=== PATIENT | male | born 1980 | race Caucasian/White ===

== ENCOUNTER 2017-02-17 00:56 | Emergency (ER) | payer SELFPAY ==
[~2017-02-17] VITALS: Ht 172.7 cm; Wt 113.4 kg
--- NOTE | 2017-02-17 01:08 | NUR ---
CALLED FOR TRIAGE; NOT IN LOBBY.
--- NOTE | 2017-02-17 01:13 | NUR ---
CALLED AGAIN; NO ANSWER.
[2017-02-17 01:29] VITALS: BP 147/99
== END 2017-02-17 02:59 | disposition home or self-care (01) ==
LOC: ER 00:56
DX: M79.602 Pain in left arm (principal)
CPT/HCPCS: 93971; 99284; A4606; Z7610

== ENCOUNTER 2018-03-16 21:32 | Emergency (ER) | payer SELFPAY ==
[~2018-03-16] VITALS: Ht 172.7 cm; Wt 122.5 kg
[2018-03-16 21:51] VITALS: BP 124/72
[2018-03-16] MEDS ORDERED: IBUPROFEN 400 MG TABLET ONE (23:52)
--- NOTE | 2018-03-16 23:55 | NUR ---
EMT BEDSIDE FOR WOUND CARE
[2018-03-17] MEDS ORDERED: IBUPROFEN 400 MG TABLET PO ONE
[2018-03-17] MEDS ORDERED: LIDOCAINE 1%-EPI 1:100,000 20 ML VIAL ONE (00:04)
== END 2018-03-17 00:33 | disposition home or self-care (01) ==
LOC: ER 21:37
DX: S01.81XA Laceration without foreign body of other part of head, initial encounter (principal); M79.1 Myalgia; Z88.0 Allergy status to penicillin; V29.9XXA Motorcycle rider (driver) (passenger) injured in unspecified traffic accident, initial encounter; Y93.55 Activity, bike riding; Y92.89 Other specified places as the place of occurrence of the external cause; Y99.8 Other external cause status
CPT/HCPCS: 93971-TC; A4606; A6402; J3490; Z7610

== ENCOUNTER 2019-04-03 10:48 | Emergency (ER) | payer MEDICAID ==
[~2019-04-03] VITALS: Ht 172.7 cm; Wt 135.2 kg
--- NOTE | 2019-04-03 11:00 | NUR ---
BRANNON CALLED TO TRIAGE, PATIENT IN RESTROOM
--- NOTE | 2019-04-03 11:09 | NUR ---
PT BBISELF FROM HOME FOR R FLANK PAIN SINCE YDAY; PT AAOX4, -SOB, NAD NOTED, VSS, PENDING MD LAST
[2019-04-03] MEDS ORDERED: ONDANSETRON HCL/PF 4 MG/2 ML VIAL ONE (11:25)
[2019-04-03] MEDS ORDERED: MORPHINE SULFATE INJ 4 MG/ML DISP.SYRIN ONE (11:25)
[2019-04-03] MEDS ORDERED: ONDANSETRON HCL/PF 4 MG/2 ML VIAL IVP ONE (11:30)
[2019-04-03] MEDS ORDERED: MORPHINE SULFATE INJ 2 MG/ML DISP.SYRIN IV ONE (11:30)
[2019-04-03] MEDS ORDERED: IV NS 0.9% 1,000 ML BAG IV ONE (11:30)
[2019-04-03 11:31] LABS: BASOPHILS % (AUTO) 0.3 % (0.0-2.0); EOSINOPHILS % (AUTO) 2.2 % (0.0-6.0); HEMATOCRIT 41 % (39-51); LYMPHOCYTES # (AUTO) 1.9 /CMM (0.8-4.8); LYMPHOCYTES % (AUTO) 24.1 % (20.0-44.0); MEAN CORPUSCULAR HGB CONC 34 g/dl (31.0-36.0); MEAN CORPUSCULAR VOLUME 85 fL (80-96); MONOCYTES # (AUTO) 0.5 /CMM (0.1-1.30); NEUTROPHILS # (AUTO) 5.4 /CMM (1.8-8.9); NEUTROPHILS % (AUTO) 67.4 % (43.0-81.0); PLATELET COUNT (AUTO) 254 /CMM (150-450); RED BLOOD CELL COUNT(AUTO) 4.86 MIL/uL (4.5-6.0); WHITE BLOOD COUNT (AUTO) 8.1 K/uL (4.3-11.0)
[2019-04-03 11:38] LABS: CALCIUM, SERUM 8.8 mg/dL (8.5-10.1); POTASSIUM 3.9 mmol/L (3.5-5.1)
[2019-04-03 11:44] LABS: ALBUMIN 3.4 g/dL (3.4-5.0); BILIRUBIN,DIRECT 0.1 mg/dL (0.0-0.2); BILIRUBIN,TOTAL 0.6 mg/dL (0.2-1.0); TOTAL PROTEIN, SERUM 7.8 g/dL (6.4-8.2)
[2019-04-03 12:15] LABS: APPEARANCE,URINE Clear (CLEAR); BILIRUBIN,URINE Negative (NEGATIVE); BLOOD, URINE Negative Ery/uL (NEGATIVE); COLOR,URINE Yellow (YELLOW); KETONES,URINE Negative (NEGATIVE); LEUKOCYTE ESTERASE ,URINE Negative (NEGATIVE); NITRITE, URINE Negative (NEGATIVE); PH,URINE 5.5 (5.0-8.0); PROTEIN,URINE Negative (NEGATIVE); UGLUCOSE Negative (NEGATIVE); UROBILINOGEN,URINE 0.2 EU/dL (0.2)
--- NOTE | 2019-04-03 12:28 | NUR ---
Patient discharged to home in stable condition. Written and verbal after care instructions given. Patient verbalizes understanding of instruction. IV removed. Catheter intact and site benign. Pressure and 4x4 applied to site. No bleeding noted.
[2019-04-03 12:30] VITALS: BP 121/84
== END 2019-04-03 12:32 | disposition home or self-care (01) ==
LOC: ER 10:48
DX: R10.11 Right upper quadrant pain (principal); F15.90 Other stimulant use, unspecified, uncomplicated; Z88.0 Allergy status to penicillin
CPT/HCPCS: 36415; 76705; 80048; 80076; 81001; 83690; 85025; 96374; 99284; J2405; J7030; 81000-TC; J2270

== ENCOUNTER 2019-11-09 12:21 | Inpatient (IN) | payer MEDICAID, OTHER ==
[~2019-11-09] VITALS: Ht 172.7 cm; Wt 127.0 kg
--- NOTE | 2019-11-09 12:30 | NUR ---
CHEST PAIN X 4 DAYS ; ACHING-LIKE, 8/10, RADIATES TO THE NECK AND BACK C/O OF HEADACHE. PATIENT A/OX4, BREATHING EVEN AND UNLABORED, NO SOB NOTED, KEPT COMFORTABLE. CHANGED INTO GOWN, ATTACHED TO THE FUR VAULT ATTENDANT.
[2019-11-09 13:21] LABS: BASOPHILS % (AUTO) 0.3 % (0.0-2.0); EOSINOPHILS % (AUTO) 0.9 % (0.0-6.0); HEMATOCRIT 35 % (39-51); HEMOGLOBIN 11.4 g/dL (13.5-17.5); LYMPHOCYTES # (AUTO) 1.6 /CMM (0.8-4.8); LYMPHOCYTES % (AUTO) 17.7 % (20.0-44.0); MEAN CORPUSCULAR HGB CONC 33 g/dl (31.0-36.0); MEAN CORPUSCULAR VOLUME 84 fL (80-96); MONOCYTES # (AUTO) 0.6 /CMM (0.1-1.30); MONOCYTES % (AUTO) 7.1 % (2.0-12.0); NEUTROPHILS # (AUTO) 6.7 /CMM (1.8-8.9); PLATELET COUNT (AUTO) 345 /CMM (150-450); RED BLOOD CELL COUNT(AUTO) 4.16 MIL/uL (4.5-6.0)
[2019-11-09 13:31] LABS: CALCIUM, SERUM 9.8 mg/dL (8.5-10.1); CREATININE 1.1 mg/dL (0.6-1.3)
--- NOTE | 2019-11-09 13:44 | NUR ---
ramu haynes [phone]
[2019-11-09] MEDS ORDERED: ASPIRIN 325 MG TABLET ONE (13:58)
[2019-11-09] MEDS ORDERED: ASPIRIN 325 MG TABLET PO ONE (14:00)
--- NOTE | 2019-11-09 14:07 | NUR ---
CALLED FOR TELE BED
--- NOTE | 2019-11-09 14:08 | NUR ---
DR. GARCIA AT BEDSIDE.
[2019-11-09] MEDS ORDERED: FUROSEMIDE 40 MG/4 ML VIAL IV ONE (14:30)
[2019-11-09] MEDS ORDERED: FUROSEMIDE 40 MG/4 ML VIAL ONE (14:38)
[2019-11-09] MEDS ORDERED: ACETAMINOPHEN 325 MG TABLET PO PRN (15:30)
[2019-11-09] MEDS ORDERED: MORPHINE SULFATE INJ 2 MG/ML DISP.SYRIN IV PRN (15:30)
[2019-11-09] MEDS ORDERED: ZOLPIDEM TARTRATE 5 MG TABLET PO PRN (15:30)
[2019-11-09] MEDS ORDERED: MAG HYDROX/AL HYDROX/SIMETH 30 ML UDC PO PRN (15:30)
[2019-11-09] MEDS ORDERED: MAGNESIUM HYDROXIDE 30 ML UDC PO PRN (15:30)
[2019-11-09] MEDS ORDERED: ONDANSETRON HCL/PF 4 MG/2 ML VIAL IVP PRN (15:30)
--- NOTE | 2019-11-09 15:48 | NUR ---
GOT BED 315-2
--- NOTE | 2019-11-09 16:21 | NUR ---
Report given to Vida ROSS. Patient a/ox4, ambulatory with steady gait, c/o mild chest pain at this time. Vitals stable. Needs attended.
[2019-11-09 16:24] LABS: APPEARANCE,URINE Clear (CLEAR); BILIRUBIN,URINE Negative (NEGATIVE); BLOOD, URINE Negative Ery/uL (NEGATIVE); COLOR,URINE Yellow (YELLOW); KETONES,URINE Negative (NEGATIVE); LEUKOCYTE ESTERASE ,URINE Negative (NEGATIVE); NITRITE, URINE Negative (NEGATIVE); PH,URINE 7.5 (5.0-8.0); PROTEIN,URINE Negative (NEGATIVE); UGLUCOSE Negative (NEGATIVE)
--- NOTE | 2019-11-09 16:37 | NUR ---
patient transferred to room 315-1 via acls protocol. Patient a/ox4, breathing even and unlabored, no sob noted. Needs attended, endorsed to mehdi rn.
[2019-11-09 16:45] LABS: BACTERIA,URINE Rare /HPF (None Seen); RBC,URINE NONE SEEN /HPF (0-2); SQUAMOUS EPITHELIAL CELL,UR Few /HPF (None Seen); WBC,URINE NONE SEEN /HPF (0-3)
--- NOTE | 2019-11-09 17:00 | NUR ---
ms rn received a new admission from er, 39 year old male, came in w/ dx of chest pain, awake alert,oriented x4,not in any form of distress ,respirations even and unlabored,no sob noted, will monitor patient.
--- NOTE | 2019-11-09 18:00 | NUR ---
ms rn no distress eating dinner at this time,all needs attended.
--- NOTE | 2019-11-09 19:00 | NUR ---
RECIEVED IN BED ALERT AND ORIENTATED x4. C/O PAIN NECK UP TP TOP OF HEAD WHICH HE SAYS HAS BEEN THERE FOR DAYS, THE MD HE TOLD TODAY WHEN HE WAS BEING ADMITTED. EXPLAINED THE CALL LIGT TO THE PT BEDALARM ON
[2019-11-09 20:00] VITALS: BP 112/67
[2019-11-09] MEDS: HYDROCODONE/APAP 5/325MG 1 EACH TABLET PO PRN (20:59)
--- NOTE | 2019-11-09 21:00 | NUR ---
ASKED IF I CAN GIVE OUT INFORMATION REGARDING CONDITION AND TESTS TO HIS FATHER REGARING HIS CONDITION AND WHAT IS HAPPENING. hE AGREED THAT NURSING COULD GIVE OUT INFO TO HIS FATHER.
[2019-11-10] VITALS: BP 125/60
[2019-11-10 04:00] VITALS: BP 132/50
--- NOTE | 2019-11-10 06:11 | NUR ---
Slept thru the night. NSR thru the night. No c/o chestpain this 12 hours. He did c/o h/a at the beginning of the shift gave [place] tab 1 and this ws effective for pain relief. No SOB. Pleasent and coopersative
[2019-11-10 06:34] LABS: BASOPHILS % (AUTO) 0.2 % (0.0-2.0); EOSINOPHILS % (AUTO) 1.2 % (0.0-6.0); HEMATOCRIT 38 % (39-51); HEMOGLOBIN 12.4 g/dL (13.5-17.5); LYMPHOCYTES # (AUTO) 1.8 /CMM (0.8-4.8); LYMPHOCYTES % (AUTO) 18.4 % (20.0-44.0); MEAN CORPUSCULAR HGB CONC 33 g/dl (31.0-36.0); MEAN CORPUSCULAR VOLUME 84 fL (80-96); MONOCYTES # (AUTO) 0.8 /CMM (0.1-1.30); MONOCYTES % (AUTO) 8.2 % (2.0-12.0); NEUTROPHILS # (AUTO) 6.9 /CMM (1.8-8.9); PLATELET COUNT (AUTO) 351 /CMM (150-450); RED BLOOD CELL COUNT(AUTO) 4.54 MIL/uL (4.5-6.0); WHITE BLOOD COUNT (AUTO) 9.5 K/uL (4.3-11.0)
[2019-11-10 07:09] LABS: ALBUMIN 2.9 g/dL (3.4-5.0); BILIRUBIN,DIRECT 0.1 mg/dL (0.0-0.2); BILIRUBIN,TOTAL 0.6 mg/dL (0.2-1.0); CALCIUM, SERUM 9.5 mg/dL (8.5-10.1); PHOSPHORUS 4.2 mg/dL (2.5-4.9); POTASSIUM 3.8 mmol/L (3.5-5.1)
[2019-11-10 07:20] LABS: THYROID STIMULATING HORMONE 1.231 uIU/mL (0.358-3.74)
--- NOTE | 2019-11-10 07:30 | NUR ---
APPLIED COMPUTER SCIENCE PROFESSOR NOTES PATIENT RESTING IN BED, ALERT AND ORIENTED X4, NO RESPIRATORY DISTRESS, NO C/O PAIN AT THIS TIME. PATIENT ON PROJECT MANAGEMENT SR 91. PATIENT'S SKIN WARM TO TOUCH, IV ACCESS SITES INTACT AND PATENT. PATIENT'S NEEDS ATTENDED, BED ON LOWEST LOCKED POSITION, CALL LIGHT WITHIN REACH. WILL CONTINUE TO MONITOR.
[2019-11-10 08:00] VITALS: BP 118/75
[2019-11-10] MEDS ORDERED: ASPIRIN 81 MG TAB.CHEW PO SCH (09:00)
[2019-11-10] MEDS ORDERED: IBUPROFEN 800 MG TABLET PO PRN (09:00)
[2019-11-10] MEDS: HYDROCODONE/APAP 5/325MG 1 EACH TABLET PO PRN (09:36)
[2019-11-10] MEDS ORDERED: IBUPROFEN 400 MG TABLET PO PRN (11:00)
[2019-11-10] MEDS: IBUPROFEN 400 MG TABLET PO SCH ×2 (15:42→21:17)
[2019-11-10 16:00] VITALS: BP 110/68
--- NOTE | 2019-11-10 18:33 | NUR ---
FOREST ECOLOGY PROFESSOR NOTES PATIENT AWAKE IN BED, FAMILY AT BEDSIDE, NO RESPIRATORY DISTRESS, NO C/O PAIN AT THIS TIME. PATIENT'S SKIN WARM TO TOUCH, IV ACCESS SITE INTACT AND PATENT. PATIENT'S NEEDS ATTENDED, BED ON LOWEST LOCKED POSITION, CALL LIGHT WITHIN REACH. WILL ENDORSE TO ONCOMING NURSE.
--- NOTE | 2019-11-10 19:45 | NUR ---
PROTECTIVE SIGNAL SUPERINTENDENT OPENING NOTES PATIENT AWAKE IN BED. A/OX4. ON ROOM AIR. NO S/S OF SOB AND NO COMPLAINTS OF PAIN AT THIS TIME. TELE MONITOR READING SINUS RHYTHM, HEART RATE 94. IV PRESENT ON RIGHT FOREARM, SIZE 18 & LEFT FOREARM, SIZE 20; BOTH INTACT, PATENT, AND HEP LOCKED. BED LOCKED, SIDE RAILS X2, CALL LIGHT WITHIN REACH. WILL CONTINUE TO MONITOR.
[2019-11-10 20:00] VITALS: BP 106/65
[2019-11-11] VITALS: BP 107/53
[2019-11-11 04:00] VITALS: BP 115/68
[2019-11-11] MEDS: IBUPROFEN 400 MG TABLET PO SCH ×2 (04:58→12:15)
[2019-11-11 07:07] LABS: BASOPHILS % (AUTO) 0.2 % (0.0-2.0); EOSINOPHILS % (AUTO) 1.6 % (0.0-6.0); HEMATOCRIT 38 % (39-51); HEMOGLOBIN 12.5 g/dL (13.5-17.5); LYMPHOCYTES # (AUTO) 1.6 /CMM (0.8-4.8); LYMPHOCYTES % (AUTO) 15.7 % (20.0-44.0); MEAN CORPUSCULAR HGB CONC 33 g/dl (31.0-36.0); MEAN CORPUSCULAR VOLUME 83 fL (80-96); MONOCYTES # (AUTO) 0.8 /CMM (0.1-1.30); MONOCYTES % (AUTO) 7.8 % (2.0-12.0); NEUTROPHILS # (AUTO) 7.6 /CMM (1.8-8.9); NEUTROPHILS % (AUTO) 74.7 % (43.0-81.0); PLATELET COUNT (AUTO) 359 /CMM (150-450); RED BLOOD CELL COUNT(AUTO) 4.51 MIL/uL (4.5-6.0); WHITE BLOOD COUNT (AUTO) 10.2 K/uL (4.3-11.0)
[2019-11-11] MEDS: HYDROCODONE/APAP 5/325MG 1 EACH TABLET PO PRN (07:10)
--- NOTE | 2019-11-11 07:30 | NUR ---
PIPING ENGINEER CLOSING NOTES PATIENT AWAKE IN BED. A/OX4. ON ROOM AIR. NO S/S OF SOB AND NO COMPLAINTS OF PAIN AT THIS TIME. TELE MONITOR READING SINUS RHYTHM, HEART RATE 69. IV PRESENT ON RIGHT FOREARM, SIZE 18 & LEFT FOREARM, SIZE 20; BOTH INTACT, PATENT, AND HEP LOCKED. BED LOCKED, SIDE RAILS X2, CALL LIGHT WITHIN REACH. WILL ENDORSE TO DAY SHIFT TO FOLLOW PLAN OF CARE.
[2019-11-11 07:36] LABS: CALCIUM, SERUM 9.6 mg/dL (8.5-10.1); POTASSIUM 4.8 mmol/L (3.5-5.1)
--- NOTE | 2019-11-11 07:46 | NUR ---
RN OPENING NOTES Patient received on room air, no sob noted, a/o x4 and is denying pain at this time. He is asleep on his bed, easily awakened. R FA 18 and L FA 20 present, awaiting for CT angio at this time. Troponin elevated, per report, DEFLECTOR OPERATOR melva aware. Bed at the lowest setting, call light within reach, side rails up x2.
[2019-11-11 08:00] VITALS: BP 109/67
--- NOTE | 2019-11-11 12:50 | NUR ---
CARDIAC CTA IS ON HOLD DUE TO UNAVAILABILITY OF NURSE, PER NURSING MAJOR GIFTS DIRECTOR UNTIL FURTHER NOTICE.
--- NOTE | 2019-11-11 14:19 | NUR ---
rn notes patient left AMA at this time. explained to the patient the benefits of staying in the hospital. patient decided to still leave at this time. IV lines removed. AMA paper signed.
== END 2019-11-11 13:15 | disposition left against medical advice (07) | DRG 812 ==
LOC: ER 12:24 → TELE 15:19
PROVIDERS: ADMIT Nurse Practitioner Acute Care; ATTEND Nurse Practitioner Acute Care
DX: T43.621A Poisoning by amphetamines, accidental (unintentional), initial encounter (principal); I21.4 Non-ST elevation (NSTEMI) myocardial infarction; I50.21 Acute systolic (congestive) heart failure; E66.01 Morbid (severe) obesity due to excess calories; E44.0 Moderate protein-calorie malnutrition; I42.9 Cardiomyopathy, unspecified; I31.9 Disease of pericardium, unspecified; Z68.41 Body mass index [BMI] 40.0-44.9, adult; I11.0 Hypertensive heart disease with heart failure; D64.9 Anemia, unspecified; R73.03 Prediabetes; F19.19 Other psychoactive substance abuse with unspecified psychoactive substance-induced disorder; Y92.009 Unspecified place in unspecified non-institutional (private) residence as the place of occurrence of the external cause; F15.20 Other stimulant dependence, uncomplicated; F12.20 Cannabis dependence, uncomplicated
CPT/HCPCS: 36415; 71045-TC; 80048-TC; 80053-TC; 80061-TC; 80076-TC; 80305; 81000-TC; 83735-TC; 84100-TC; 84443-TC; 84484-TC; 85025-TC; 87081-TC; 93307-TC; G0378; J1940

== ENCOUNTER 2019-11-13 00:45 | Inpatient (IN) | payer OTHER ==
[~2019-11-13] VITALS: Ht 172.7 cm; Wt 127.0 kg
--- NOTE | 2019-11-13 00:45 | NUR ---
TO ER BED 8 AMBULATORY C/O L SIDED CHEST PAIN RADIATING TO NECK AND BACK X4-5 DAYS. WAS SEEN HERE ON 11/09 AND WAS ADMITTED FOR NSTEMI BUT SIGNED OUT AMA ON 11/11. 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 PT AAOX4 NO ACUTE DISTRESS NOTED, RESP EVEN AND UNLABORED. SKIN WARM, NONDIAPHORETIC. PLACE PT ON CARDIAC MONITORING, CONTINUOUS POX. PENDING ER MD LAST.
--- NOTE | 2019-11-13 00:51 | NUR ---
ER MD AT BEDSIDE TO EVAL PT WITH ORDERS RECEIVED. WILL CARRY OUT ORDERS.
[2019-11-13] MEDS ORDERED: ASPIRIN 325 MG TABLET PO ONE (01:00)
[2019-11-13] MEDS ORDERED: NITROGLYCERIN 0.4 MG/TAB BOTTLE SL ONE ×2 (01:00→09:30)
[2019-11-13] MEDS ORDERED: NITROGLYCERIN 0.4 MG/TAB BOTTLE ONE ×2 (01:03→09:40)
[2019-11-13] MEDS ORDERED: ASPIRIN 325 MG TABLET ONE (01:04)
[2019-11-13 01:11] LABS: BASOPHILS % (AUTO) 0.2 % (0.0-2.0); EOSINOPHILS % (AUTO) 1.3 % (0.0-6.0); HEMATOCRIT 37 % (39-51); LYMPHOCYTES # (AUTO) 2.7 /CMM (0.8-4.8); LYMPHOCYTES % (AUTO) 27.3 % (20.0-44.0); MEAN CORPUSCULAR HGB CONC 32 g/dl (31.0-36.0); MEAN CORPUSCULAR VOLUME 84 fL (80-96); MONOCYTES # (AUTO) 0.8 /CMM (0.1-1.30); MONOCYTES % (AUTO) 8.3 % (2.0-12.0); NEUTROPHILS # (AUTO) 6.2 /CMM (1.8-8.9); NEUTROPHILS % (AUTO) 62.9 % (43.0-81.0); PLATELET COUNT (AUTO) 401 /CMM (150-450); RED BLOOD CELL COUNT(AUTO) 4.43 MIL/uL (4.5-6.0); WHITE BLOOD COUNT (AUTO) 9.9 K/uL (4.3-11.0)
--- NOTE | 2019-11-13 01:13 | NUR ---
pt reported relief of chest pain after taking nitro sl one dose. MD mg
[2019-11-13 01:18] LABS: CALCIUM, SERUM 9.6 mg/dL (8.5-10.1); CREATININE 1.1 mg/dL (0.6-1.3); POTASSIUM 4.9 mmol/L (3.5-5.1)
--- NOTE | 2019-11-13 01:48 | NUR ---
DR. YAO ON THE PHONE W/ JUD, DIRECTOR OF CASEWORK DEPARTMENT
--- NOTE | 2019-11-13 02:06 | NUR ---
Patient is resting comfortably in bed with eyes closed. Easily aroused. VSS
--- NOTE | 2019-11-13 03:24 | NUR ---
PER PT, SHE IS NOT TAKING ANY MEDS AT HOME
--- NOTE | 2019-11-13 03:25 | NUR ---
report given to Leticia for angelic
[2019-11-13] MEDS ORDERED: ZOLPIDEM TARTRATE 5 MG TABLET PO PRN (04:00)
[2019-11-13] MEDS ORDERED: HYDROCODONE/APAP 5/325MG 1 EACH TABLET PO PRN (04:00)
[2019-11-13] MEDS ORDERED: ACETAMINOPHEN 325 MG TABLET PO PRN (04:00)
[2019-11-13] MEDS ORDERED: ONDANSETRON HCL/PF 4 MG/2 ML VIAL IVP PRN (04:00)
--- NOTE | 2019-11-13 04:40 | NUR ---
TELE/RN ADMITTING NOTES: RECEIVED REPORT FROM CODY SHELDON. PATIENT ARRIVED TO THE UNIT VIA GURNEY IN STABLE CONDITION UNDER ACLS PROTOCOL. A/OX4, VERBALLY RESPONSIVE AND ABLE TO MAKE NEEDS KNOWN. SKIN ASSESSMENT DONE, SKIN IS INTACT, PATIENT IS AMBULATORY. ON TELE MONITORING WITH READING OF SR 80S. VS WNL. NO SOB NOTED, NO S/S OF ACUTE DISTRESS, NO COMPLAINS OF PAIN OR DISCOMFORT AT THIS TIME. DENIES CHEST PAIN. BELONGINGS LIST CHECKED. IV SITE ON THE RIGHT AC #18G INTACT AND PATENT, SL. SAFETY MEASURES ARE IN PLACE. BED IN LOW, LOCKED POSITION WITH SR UP X2. WILL CONTINUE TO MONITOR PATIENT ACCORDINGLY.
[2019-11-13 05:03] VITALS: BP_SYST 109; BP_SYST 110; BP_DIAS 60; BP_DIAS 62
--- NOTE | 2019-11-13 05:30 | NUR ---
pt was transferred to the floor under ACLS
--- NOTE | 2019-11-13 06:39 | NUR ---
TELE/RN CLOSING NOTES: PATIENT IS IN STABLE CONDITION, SLEEPING COMFORTABLY. REMAINS A/OX4, VERBALLY RESPONSIVE AND ABLE TO MAKE NEEDS KNOWN. ON TELE MONITORING WITH READING OF SR 80S. VS WNL. NO SOB NOTED, NO S/S OF ACUTE DISTRESS, NO COMPLAINS OF PAIN OR DISCOMFORT AT THIS TIME. DENIES CHEST PAIN. IV SITE ON THE RIGHT AC #18G INTACT AND PATENT, SL. SAFETY MEASURES ARE IN PLACE. BED IN LOW, LOCKED POSITION WITH SR UP X2. WILL ENDORSE TO DAY SHIFT RN FOR CHANTELLE.
[2019-11-13] MEDS ORDERED: PANTOPRAZOLE 40 MG TABLET.DR PO SCH (07:30)
[2019-11-13 07:39] LABS: CALCIUM, SERUM 9.4 mg/dL (8.5-10.1); POTASSIUM 3.8 mmol/L (3.5-5.1)
[2019-11-13 07:40] LABS: BASOPHILS % (AUTO) 0.2 % (0.0-2.0); EOSINOPHILS % (AUTO) 1.9 % (0.0-6.0); HEMATOCRIT 36 % (39-51); HEMOGLOBIN 11.8 g/dL (13.5-17.5); LYMPHOCYTES # (AUTO) 2.6 /CMM (0.8-4.8); LYMPHOCYTES % (AUTO) 30.5 % (20.0-44.0); MEAN CORPUSCULAR HGB CONC 33 g/dl (31.0-36.0); MEAN CORPUSCULAR VOLUME 84 fL (80-96); MONOCYTES # (AUTO) 0.9 /CMM (0.1-1.30); MONOCYTES % (AUTO) 10.1 % (2.0-12.0); NEUTROPHILS # (AUTO) 4.9 /CMM (1.8-8.9); NEUTROPHILS % (AUTO) 57.3 % (43.0-81.0); PLATELET COUNT (AUTO) 356 /CMM (150-450); RED BLOOD CELL COUNT(AUTO) 4.31 MIL/uL (4.5-6.0); WHITE BLOOD COUNT (AUTO) 8.6 K/uL (4.3-11.0)
[2019-11-13 07:44] LABS: ALBUMIN 2.7 g/dL (3.4-5.0); BILIRUBIN,TOTAL 0.4 mg/dL (0.2-1.0); PHOSPHORUS 4.6 mg/dL (2.5-4.9); TOTAL PROTEIN, SERUM 8.6 g/dL (6.4-8.2)
--- NOTE | 2019-11-13 07:49 | NUR ---
MEDICAL TECHNICIANS NOTES PATIENT IN BED A/OX4 AWAKE IN SITTING POSITION HAVING BREAKFAST. NO SOB OR DISCOMFORT NOTED AT THIS TIME. DENIES ANY PAIN. CALL LIGHT WITHIN REACH , BED AT THE LOWEST POSITION LOCKED. WILL CONTINUE TO MONITOR PATIENT.
[2019-11-13 08:00] VITALS: BP 116/83
[2019-11-13 08:05] VITALS: BP 116/85
[2019-11-13] MEDS ORDERED: ASPIRIN 325 MG TABLET PO SCH (09:00)
--- NOTE | 2019-11-13 09:15 | NUR ---
DESKTOP SPECIALIST NOTES PATIENT WENT FOR CT ANGIOGRAM WITH AC IV #18 PATENT.
[2019-11-13] MEDS ORDERED: IV NS 0.9% 500 ML IV PRN (09:30)
[2019-11-13] MEDS ORDERED: METOPROLOL TARTRATE INJ 5 MG/5 ML AMPUL ONE (09:40)
[2019-11-13] MEDS ORDERED: IOHEXOL-350 100 ML VIAL IV ONE ×2 (09:42→10:43)
[2019-11-13] MEDS ORDERED: IV NS 0.9% 250 ML IV ONE (09:43)
[2019-11-13] MEDS: METOPROLOL TARTRATE INJ 5 MG/5 ML AMPUL IVP SCH ×5 (09:50→10:18)
[2019-11-13] MEDS ORDERED: IV NS 0.9% 500 ML IV ONE (09:53)
--- NOTE | 2019-11-13 10:45 | NUR ---
Metoprolol 5mg IVPx5 given, NTG 0.4mg SL given NS 500 ml IV bolus given for SBP 90s; denies CP or SOB
--- NOTE | 2019-11-13 11:15 | NUR ---
TREASURY MANAGEMENT SALES CONSULTANT NOTES PATIENT LEFT THE UNIT FOR SMOKING , INFORMED CONSENT SIGNED.
--- NOTE | 2019-11-13 11:25 | NUR ---
ADMISSIONS COUNSELOR NOTES [facility].
[2019-11-13 12:00] VITALS: BP 107/71
[2019-11-13] MEDS ORDERED: CLONIDINE HCL 0.1 MG TABLET PO PRN (13:00)
[2019-11-13 16:00] VITALS: BP 120/70
--- NOTE | 2019-11-13 19:24 | NUR ---
SALVAGE MECHANIC NOTES PATIENT LEFT THE HOSPITAL, VITALS NORMAL, ABLE TO AMBULATE, A/OX4 , TELE BOX REMOVED, IV REMOVED, ID BAND REMOVED, BELONGINGS RETURNED TO THE PATIENT, SKIN INTACT NO PICTURES TAKEN.
[2019-11-14] MEDS ORDERED: IBUPROFEN 400 MG TABLET PO SCH (07:00)
== END 2019-11-13 19:38 | disposition home or self-care (01) | DRG 812 ==
LOC: ER 00:46 → TELE1 02:41
PROVIDERS: ADMIT Internal Medicine; ATTEND Internal Medicine
DX: T43.621A Poisoning by amphetamines, accidental (unintentional), initial encounter (principal); I21.4 Non-ST elevation (NSTEMI) myocardial infarction; I31.9 Disease of pericardium, unspecified; E66.01 Morbid (severe) obesity due to excess calories; I42.9 Cardiomyopathy, unspecified; Z68.41 Body mass index [BMI] 40.0-44.9, adult; F15.20 Other stimulant dependence, uncomplicated; D64.9 Anemia, unspecified; F12.20 Cannabis dependence, uncomplicated; Z88.0 Allergy status to penicillin; Y92.89 Other specified places as the place of occurrence of the external cause
CPT/HCPCS: 36415; 71045-TC; 75574; 80048-TC; 80053-TC; 83735-TC; 84100-TC; 84484-TC; 85025-TC; 87081-TC; G0378; J3490; J7040; J7050; Q9967

== ENCOUNTER 2019-12-23 23:10 | Inpatient (IN) | payer OTHER ==
[~2019-12-23] VITALS: Ht 172.7 cm; Wt 131.5 kg
--- NOTE | 2019-12-23 23:10 | NUR ---
PT BIBSELF C/O MIDSTERNAL CHEST PAIN X2 DAYS, PROGRESSIVELY GETTING WORSE +SOB, -HEADACHE, +DIZZINESS, -NAUSEA/VOMITTING. PT AAOX4, RR EVEN AND UNLABORED ON RA W/ AND NOTED. PT CONNECTED TO THE FRONT OFFICE HELP AND POX
--- NOTE | 2019-12-23 23:15 | NUR ---
IV LINE ESTABLISHED. BLOOD DRAWN AND SENT TO LAB
[2019-12-23 23:36] LABS: BASOPHILS % (AUTO) 0.3 % (0.0-2.0); EOSINOPHILS % (AUTO) 1.3 % (0.0-6.0); HEMATOCRIT 35 % (39-51); HEMOGLOBIN 11.2 g/dL (13.5-17.5); LYMPHOCYTES # (AUTO) 2.4 /CMM (0.8-4.8); LYMPHOCYTES % (AUTO) 21.4 % (20.0-44.0); MEAN CORPUSCULAR HGB CONC 32 g/dl (31.0-36.0); MEAN CORPUSCULAR VOLUME 81 fL (80-96); MONOCYTES # (AUTO) 0.7 /CMM (0.1-1.30); MONOCYTES % (AUTO) 5.9 % (2.0-12.0); NEUTROPHILS # (AUTO) 7.9 /CMM (1.8-8.9); NEUTROPHILS % (AUTO) 71.1 % (43.0-81.0); PLATELET COUNT (AUTO) 413 /CMM (150-450); RED BLOOD CELL COUNT(AUTO) 4.34 MIL/uL (4.5-6.0); WHITE BLOOD COUNT (AUTO) 11.1 K/uL (4.3-11.0)
[2019-12-23 23:45] LABS: CALCIUM, SERUM 9.5 mg/dL (8.5-10.1); POTASSIUM 3.3 mmol/L (3.5-5.1)
--- NOTE | 2019-12-23 23:45 | NUR ---
XRAY AT BEDSIDE
[2019-12-23] MEDS ORDERED: NITROGLYCERIN 0.4 MG/TAB BOTTLE ONE (23:46)
--- NOTE | 2019-12-23 23:50 | NUR ---
MD MADE AWARE OF PT'S BP 101/50 PRIOR TO NITRO ADMINISTRATION.
[2019-12-24] MEDS ORDERED: NITROGLYCERIN 0.4 MG/TAB BOTTLE SL ONE
--- NOTE | 2019-12-24 02:49 | NUR ---
BED ASSIGNMENT 323-1
--- NOTE | 2019-12-24 02:49 | NUR ---
Roque jackson in [facility] - 12/24/[address]ED ASSIGN[address] [id number]
--- NOTE | 2019-12-24 02:55 | NUR ---
REPORT GIVEN TO CODY SUBRAMANIAN
[2019-12-24] MEDS ORDERED: MAG HYDROX/AL HYDROX/SIMETH 30 ML UDC PO PRN (03:00)
[2019-12-24] MEDS ORDERED: ONDANSETRON HCL/PF 4 MG/2 ML VIAL IVP PRN (03:00)
[2019-12-24] MEDS ORDERED: Z GUARD REMEDY 2 OZ OINT TP PRN (03:00)
[2019-12-24] MEDS ORDERED: ZOLPIDEM TARTRATE 5 MG TABLET PO PRN (03:00)
[2019-12-24] MEDS ORDERED: ACETAMINOPHEN 325 MG TABLET PO PRN (03:00)
[2019-12-24] MEDS ORDERED: MAGNESIUM HYDROXIDE 30 ML UDC PO PRN (03:00)
[2019-12-24] MEDS ORDERED: POTASSIUM CHLORIDE 20 MEQ TAB.PRT.SR PO ONE (03:30)
[2019-12-24 04:00] VITALS: BP 113/68
--- NOTE | 2019-12-24 04:10 | NUR ---
PT TRANSFERRED TO ROOM IN STABLE CONDITION
[2019-12-24] MEDS: NITROGLYCERIN PACKET 1 GM PACKET TOP SCH ×3 (04:21→21:19)
[2019-12-24] MEDS: ASPIRIN 325 MG TABLET PO SCH ×2 (04:27→09:14)
--- NOTE | 2019-12-24 04:45 | NUR ---
MS/RN RECEIVED PATIENT FROM [facility]IA [facility] AT 0345. PATIENT WAS AWAKE, ALERT, ORIENTED, COMFORTABLE, NO C/O PAIN, NO SIGNS OF DISTRESS NOTED, MADE COMFORTABLE IN BED, ADMISSION DONE PER PROTOCOL, REFUSED SKIN CHECK/PHOTO EXCEPT THE REDNESS IN THE RLE. PLAN OF CARE DISCUSSED (NPO UNTIL SEEN BY THE CONTROL INTEGRATION ENGINEER TODAY DUE TO DIAGNOSIS), VERBALIZED UNDERSTANDING AND AGREEMENT TO THE PLAN, TAUGHT THE USE OF CALL LIGHT AND PLACED IT AT BEDSIDE WITHIN REACH. WILL MONITOR.
[2019-12-24 05:01] VITALS: BP 113/68
--- NOTE | 2019-12-24 07:40 | NUR ---
TELE/RN NOTE THE PATIENT IS RECEIVED IN BED. PATIENT IS ALERT AND ORIENTED X4. IN ROOM AIR AND DENIES SOB. RESPIRATION REGULAR AND UNLABORED. DENIES PAIN. THE PATIENT IS IN NO APPARENT DISTRESS. EXTERNAL TELE BOX READING IS SR 98. ROJELIO G 20 PATENT AND SALINE LOCKED. BED LOW AND LOCKED. SIDE RAILS UP X3. CALL LIGHT WITHIN REACH. WILL CONTINUE TO MONITOR.
[2019-12-24 08:00] VITALS: BP 99/48
[2019-12-24] MEDS ORDERED: LISINOPRIL (5MG) 5 MG TABLET PO SCH (10:00)
--- NOTE | 2019-12-24 12:59 | NUR ---
RN NOTE THE PATIENT COMPLAINED OF CHEST PAIN 5/10. APPLIED NITRO-BID [address] GARRISON IS AWARE OF CHEST PAIN AND THE LATEST TROPONIN LEVEL OF 0.097. NO NEW ORDERS PER DR GARRISON.
--- NOTE | 2019-12-24 13:15 | NUR ---
RN NOTE THE PATIENT VERBALIZED RELIEF FROM CHEST PAIN. THE PATIENT DENIES ANY PAIN/DISCOMFORT AT THIS TIME. WILL CONTINUE TO MONITOR.
[2019-12-24 16:00] VITALS: BP 101/42
--- NOTE | 2019-12-24 17:55 | NUR ---
RN NOTE THE PATIENT COMPLAINS OF CHEST PAIN 01/18 AND HE DESCRIBED THE PAIN SUPERFICIAL AND POINTING WHERE HE INJURED WHEN CUTTING A TREE RECENTLY. TYLENOL 650 MG PO GIVEN. WILL CONTINUE TO MONITOR.
--- NOTE | 2019-12-24 18:20 | NUR ---
RN NOTE THE PATIENT VERBALIZED RELIEF FROM CHEST PAIN AND RATED PAIN 0/10.
--- NOTE | 2019-12-24 19:10 | NUR ---
RN NOTE THE PATIENT IS ALERT AND ORIENTED X4. IN ROOM AIR AND SATURATION IS AT 97%. DENIES SOB. RESPIRATION REGULAR AND UNLABORED. DENIES PAIN AT THIS TIME. ROJELIO G 20 PATENT AND SALINE LOCKED. BED LOW AND LOCKED. SIDE RAILS UP X3. CALL LIGHT WITHIN REACH. WILL ENDORSE TO COOK MESS.
--- NOTE | 2019-12-24 19:15 | NUR ---
RN OPENING NOTES: RECEIVED PATIENT IN BED, AWAKE A/O X4. NO SOB NOTED. NO COMPLAIN OF PAIN. CALL LIGHT WITHIN REACH. BED IN LOWEST AND LOCKED POSITION.
--- NOTE | 2019-12-24 19:40 | NUR ---
PATIENT COMPLAINED OF SLIGHT CHEST PAIN WHEN HE SNEEZE AFTER PREVIOUS RN MAGGIE SWAB HIS NOSE FOR MRSA SCREENING, PATIENT WAS ASKING FOR PAIN MED, BUT PATIENT JUST TOOK TYLENOL EARLIER AND IT'S NOT DUE YET, EXPLAINED TO THE PATIENT, AND VERBALIZED UNDERSTANDING.
[2019-12-24 20:00] VITALS: BP 99/40
--- NOTE | 2019-12-24 20:17 | NUR ---
V/S taken by OLIMPIA Lang afebriadarsh. Recorded.
[2019-12-24 21:19] VITALS: BP 114/59
[2019-12-24] MEDS ORDERED: ATORVASTATIN 40 MG TABLET PO SCH (22:00)
--- NOTE | 2019-12-24 23:15 | NUR ---
LEFT EYE REDNESS NOTED. PATIENT SAID THAT IT'S BEEN LIKE THAT SINCE ADMISSION. PATIENT COMPLAINED OF LEFT EYE PAIN ALSO, NO ITCHINESS,NO DISCHARGES.
--- NOTE | 2019-12-24 23:17 | NUR ---
OFFERED THE TYLENOL FOR PAIN, PATIENT REFUSED. PATIENT VERBALIZED HE WANTS TO GO AMA, ADVICE GIVEN TO THE PATIENT ABOUT THE IMPORTANCE OF STAYING, PATIENT INSISTED TO LEAVE. CHARGE NURSE SANDRA MADE AWARE. PATIENT WILLING TO SIGN THE AMA FORM. CHARGE NURSE WILL CALL
--- NOTE | 2019-12-24 23:33 | NUR ---
PATIENT SIGNED THE AMA FORM AND ATTACHED TO THE CHART. CHARGE NURSE INFORMED DR CAMARILLO. IV ON THE RIGHT FA REMOVED,TIP IS INTACT, NO BLEEDING NOTED.
--- NOTE | 2019-12-24 23:51 | NUR ---
ACCORDING TO EMPLOYMENT CASE MANAGER MAGED PATIENT ALREADY LEFT.
[2019-12-25] MEDS ORDERED: ASPIRIN 81 MG TAB.CHEW PO SCH (09:00)
== END 2019-12-24 23:40 | disposition left against medical advice (07) | DRG 812 ==
LOC: ER 23:13 → TELE 12-24 03:09
PROVIDERS: ADMIT Family Medicine; ATTEND Family Medicine
DX: T43.621A Poisoning by amphetamines, accidental (unintentional), initial encounter (principal); I21.A1 Myocardial infarction type 2; I50.22 Chronic systolic (congestive) heart failure; D72.829 Elevated white blood cell count, unspecified; E87.6 Hypokalemia; E66.9 Obesity, unspecified; F15.10 Other stimulant abuse, uncomplicated; R73.03 Prediabetes; Z87.891 Personal history of nicotine dependence; Z68.41 Body mass index [BMI] 40.0-44.9, adult; Y92.009 Unspecified place in unspecified non-institutional (private) residence as the place of occurrence of the external cause; I25.2 Old myocardial infarction
CPT/HCPCS: 36415; 71045-TC; 80048-TC; 82550-TC; 84484-TC; 85025-TC; 85378-TC; 87081-TC; 93307-TC; G0378